=== PATIENT | female | born 1990 | race Caucasian/White ===

== ENCOUNTER 2023-07-29 13:50 | Outpatient (CLI) | payer BC ==
[2023-07-29] MEDS ORDERED: Sterile Water 10 ML ONE (15:08)
[2023-07-29] MEDS ORDERED: Sincalide 5 MCG VIAL ONE (15:08)
== END 2023-07-29 13:51 | disposition home or self-care (01) ==
LOC: NM 13:50
PROVIDERS: ATTEND Internal Medicine
DX: R10.13 Epigastric pain (principal); R11.2 Nausea with vomiting, unspecified
CPT/HCPCS: 78227; A9537; J2805